=== PATIENT | male | born 1990 | race African-American/Black ===

== ENCOUNTER 2016-02-28 08:21 | Emergency (ER) | payer SELFPAY ==
[~2016-02-28] VITALS: Ht 177.8 cm; Wt 72.6 kg
[~2016-02-28 08:21] MED LIST: CLINDAMYCIN HC300 MG ORAL; IBUPROFEN600 MG ORAL; NKM
[2016-02-28] MEDS ORDERED: Tylenol #3 tab (300mg/30mg) ORAL ONE (08:45)
--- NOTE | 2016-02-28 08:47 | Emergency Room Report ---
History of Present Illness General Chief Complaint: Upper Respiratory Illness Source: Patient Present Illness HPI 25 YO M with no known PMHx with subjective fever last night and palpitations and dry cough with pleuritic chest pain after coughing. Denies terence chest pain , SOB. Smokes. Denies history of Asthma, PE. No other med problems. Allergies: Coded Allergies: No Known Allergies (Unverified , 12/24/15) Patient History Past Medical History: none Past Surgical History: none Pertinent Family History: none Social History: Reports: smoking Immunizations: UTD Reviewed Nursing Documentation: PMH: Agreed, PSxH: Agreed Review of Systems All Other Systems: negative except mentioned in HPI Physical Exam Vital Signs Date Time Temp Pulse Resp B/P Pulse Ox O2 Delivery O2 Flow Rate FiO2 02/28/16 08:27 99.1 84 20 113/76 97 Room Air Sp02 EP Interpretation: reviewed, normal General Appearance: normal inspection, well appearing, no apparent distress, alert, GCS 15, non-toxic Head: normocephalic, atraumatic Eyes: bilateral eye EOMI, bilateral eye PERRL ENT: normal ENT inspection, hearing grossly normal, normal pharynx, no angioedema, normal voice, TMs + canals normal, uvula midline, dry mucus membranes Neck: normal inspection, full range of motion, supple, no bony tend Respiratory: normal inspection, lungs clear, normal breath sounds, no rhonchi, no respiratory distress, no retraction, no accessory muscle use, no wheezing Cardiovascular #1: normal peripheral pulses, regular rate, rhythm, no edema Gastrointestinal: normal inspection, normal bowel sounds, non tender, soft, no guarding, no hernia Genitourinary: no CVA tenderness Musculoskeletal: normal inspection, back normal, normal range of motion, Christine' s Sign negative Neurologic: normal inspection, alert, oriented x3, responsive, logistics tech III-XII nml as tested, motor strength/tone normal, cerebellar normal, normal gait, speech normal Psychiatric: normal inspection, judgement/insight normal, mood/affect normal Skin: normal inspection, normal color, no rash Lymphatic: normal inspection Medical Decision Making Diagnostic Impression: Primary Impression: Upper respiratory infection Qualified Codes: J06.9 - Acute upper respiratory infection, unspecified; B97.89 - Other viral agents as the cause of diseases classified elsewhere ER Course 25 YO M with palpitations, pleurtic chest pain, URI symptoms. VSS. Afebrile DDx includes bronchitis, viral URI EKG to r/o pericarditis/myocarditis: NSR, no ischemia or ST changes. Low suspicion for PE Improved symptoms with T#3 Low suspicion for pna or asthma given normal VS, lungs CTAB Dc with Albuterol, T#3, PMD followup EKG Diagnostic Results Rate: normal Rhythm: NSR ST Segments: no acute changes ASA given to the pt in ED: No Last Vital Signs Date Time Temp Pulse Resp B/P Pulse Ox O2 Delivery O2 Flow Rate FiO2 02/28/16 08:39 84 20 Room Air 02/28/16 08:27 99.1 113/76 97 Status: improved Disposition: HOME, SELF-CARE Scripts Albuterol Sulfate (VENTOLIN HFA) 18 Gm Hfa.aer.ad 2 PUFFS INH EVERY 6 HOURS, #18 GM 0 Refills Prov: JORGE STARR M.D. 02/28/16 Acetaminophen With Codeine (T#3) (TYLENOL #3 TAB*) Y Tab 1 TAB ORAL Q8H Y for For Pain, #20 TAB Prov: JORGE STARR M.D. 02/28/16 Referrals: NOT CHOSEN GABY/,REFERRING (PCP) JORGE STARR M.D. Feb 28, 2016 08:46
[2016-02-28] MEDS ORDERED: VENTOLIN HFA18 GM INH (08:48)
[2016-02-28] MEDS ORDERED: ACETAMINOPHEN-1 EAC1 ORAL (08:48)
[2016-02-28 09:40] VITALS: BP 130/72
--- NOTE | 2016-02-29 17:45 | Cardiology Report ---
APPROVED REPORT EKG Measurement Heart [id number] Normal sinus rhythm Rightward axis ST elevation, probably due to early repolarization Borderline ECG
== END 2016-02-28 09:44 | disposition home or self-care (01) ==
LOC: EMR 08:30
DX: J06.9 Acute upper respiratory infection, unspecified (principal); B97.89 Other viral agents as the cause of diseases classified elsewhere; F17.210 Nicotine dependence, cigarettes, uncomplicated
CPT/HCPCS: 93005; 99283

== ENCOUNTER 2018-11-25 14:17 | Emergency (ER) | payer SELFPAY ==
[~2018-11-25] VITALS: Ht 177.8 cm; Wt 76.2 kg
[~2018-11-25 14:17] MED LIST changes: +ACETAMINOPHEN-1 EAC1 ORAL; +VENTOLIN HFA18 GM INH
[2018-11-25 14:22] VITALS: BP 126/84
--- NOTE | 2018-11-25 14:22 | NUR ---
ED Nurse Note: Patient walked in to ER c/o pain on his gums and upper tooth. Noted with swollen gums on his upper right. Skin intact. No bleeding on the gums noted.
[2018-11-25] MEDS ORDERED: Ketorolac 30mg Inj IM ONE (14:45)
--- NOTE | 2018-11-25 14:47 | Emergency Room Report ---
History of Present Illness General Chief Complaint: Toothache Source: Patient Present Illness HPI 28-year-old male with no significant past medical history here complaining of right-sided tooth pain for several weeks. Patient has not yet made an appointment with a dentist. Reports that yesterday started having swelling in the right side of maxilla and pain. Denies fever and chills, sore throat, cough and congestion. Has not taken medication for symptom relief. Some minor edema is noted on the right maxilla around the nasolabial fold due to infection of right upper premolar. Allergies: Coded Allergies: No Known Allergies (Unverified , 12/24/15) Patient History Past Medical History: see triage record Past Surgical History: unable to obtain Pertinent Family History: none Immunizations: UTD Reviewed Nursing Documentation: PMH: Agreed; PSxH: Agreed Nursing Documentation-PMH Past Medical History: No Stated History Review of Systems All Other Systems: negative except mentioned in HPI Physical Exam Vital Signs Date Time Temp Pulse Resp B/P (MAP) Pulse Ox O2 Delivery O2 Flow Rate FiO2 11/25/18 14:24 98.4 104 18 123/70 (87) 96 Room Air Sp02 EP Interpretation: reviewed, normal General Appearance: no apparent distress, alert, GCS 15, non-toxic Head: normocephalic, atraumatic Eyes: bilateral eye normal inspection, bilateral eye PERRL ENT: hearing grossly normal, normal pharynx, no angioedema, normal voice, other - Edema right maxilla around.nasal/labial fod with infection of the right upper premolar Neck: full range of motion, supple/symm/no masses Respiratory: chest non-tender, lungs clear, normal breath sounds, speaking full sentences Cardiovascular #1: regular rate, rhythm, no edema, no murmur Gastrointestinal: normal bowel sounds, non tender, soft, non-distended, no guarding, no rebound Rectal: deferred Genitourinary: normal inspection, no CVA tenderness Musculoskeletal: normal inspection, back normal, digits/nails normal Neurologic: normal inspection, alert, oriented x3, responsive Psychiatric: judgement/insight normal, memory normal, mood/affect normal, no suicidal/homicidal ideation Skin: no rash Lymphatic: no adenopathy Medical Decision Making PA Attestation All my diagnosis and treatment plans were reviewed ad discussed with my supervising physician Dr. Hurd Diagnostic Impression: Primary Impression: Tooth infection ER Course 28-year-old male with no significant past medical history here complaining of right-sided tooth pain for several weeks. Patient has not yet made an appointment with a dentist. Reports that yesterday started having swelling in the right side of maxilla and pain. Denies fever and chills, sore throat, cough and congestion. Has not taken medication for symptom relief. Some minor edema is noted on the right maxilla around the nasolabial fold due to infection of right upper premolar. Ddx considered but are not limited to : Cellulitis, tooth abscess, tooth infection Vital signs: are WNL, pt. is afebrile H&PE are most consistent with: Tooth infection ORDERS: Amoxicillin, ibuprofen ED INTERVENTIONS: Amoxicillin, Toradol DISCHARGE: At this time pt. is stable for d/c to home. Will provide printed patient care instructions, and any necessary prescriptions. Care plan and follow up instructions have been discussed with the patient prior to discharge. I advised patient to follow-up with dentist also follow with primary care provider no imaging necessary as there is no abscess formation and stable vital sign Last Vital Signs Date Time Temp Pulse Resp B/P (MAP) Pulse Ox O2 Delivery O2 Flow Rate FiO2 11/25/18 14:24 98.4 104 18 123/70 (87) 96 Room Air Disposition: HOME, SELF-CARE Condition: Stable Scripts Amoxicillin* (AMOXIL*) 500 Mg Capsule 500 MG ORAL EVERY 8 HOURS for 10 Days, #30 CAP Prov: Anne-Marie Posey 11/25/18 Ibuprofen (Ibu) 800 Mg Tablet 800 MG PO TID, #30 TAB Prov: Anne-Marie Posey 11/25/18 Patient Instructions: Dental Abscess, [id number] Additional Instructions: Antibiotics take medication as directed follow-up with if worsening symptoms return to the emergency room Anne-Marie Posey Nov 25, 2018 14:47
[2018-11-25] MEDS ORDERED: IBU800 MG PO (14:48)
[2018-11-25] MEDS ORDERED: AMOXICILLIN500 MG ORAL (14:48)
[2018-11-25 15:03] VITALS: BP 126/84
--- NOTE | 2018-11-25 15:03 | NUR ---
ER DISCHARGE NOTE: Patient is cleared to be discharged per ERMD, pt is aox4, on room air, with stable vital signs. pt was given dc and prescription instructions, pt was able to verbalize understanding, pt id band removed. pt is able to ambulate with steady gait. pt took all belongings.
== END 2018-11-25 15:03 | disposition home or self-care (01) ==
LOC: EMR 14:40
DX: K04.7 Periapical abscess without sinus (principal)
CPT/HCPCS: 96372; 99283; J1885